=== PATIENT | female | born 1990 | race Caucasian/White ===

== ENCOUNTER 2017-03-31 08:05 | Emergency (ER) | payer SELFPAY ==
[2017-03-31] MEDS ORDERED: HYDROCODON-ACE1 EAC7 PO (14:04)
[2017-04-01 10:44] VITALS: BMI 25.1
[2017-04-01] MEDS ORDERED: HYDROCODONE-APA1 TAB PO (16:40)
== END 2017-03-31 10:05 | disposition home or self-care (01) ==
LOC: D.ER 08:05
DX: S92.352A Displaced fracture of fifth metatarsal bone, left foot, initial encounter for closed fracture (principal); W10.9XXA Fall (on) (from) unspecified stairs and steps, initial encounter; Y93.89 Activity, other specified; Y92.89 Other specified places as the place of occurrence of the external cause

== ENCOUNTER 2017-04-01 08:52 | Day surgery (SDC) | payer SELFPAY ==
[~2017-04-01] VITALS: Ht 170.2 cm; Wt 72.6 kg
--- NOTE | ~2017-04-01 | OP ---
PATIENT NAME: STANFORD JENSEN MEDICAL RECORD: [id number] :90 LOCATION:[facility] ADMISSION DATE: SURGEON: JUAN SOLIZ MD DATE OF OPERATION: 04/01/2017 PREOPERATIVE DIAGNOSIS: Comminuted 5th metatarsal fracture. POSTOPERATIVE DIAGNOSIS: Comminuted 5th metatarsal fracture. PROCEDURE: Open reduction internal fixation of comminuted 5th metatarsal fracture. IMPLANTS USED: Inna VariAx Z-Plate. OPERATIVE SUMMARY IN DETAIL: After obtaining the appropriate preoperative orthopedic surgery consent as well as anesthetic consultation, evaluation and clearance, the patient was brought to the operating room and placed on the operating table in supine position. After general laryngeal mask was administered, tourniquet was placed about the proximal aspect of the left lower extremity. Left lower extremity was then prepped and draped in routine sterile fashion. The leg was elevated and exsanguinated. Tourniquet inflated to 350 mmHg. A linear based incision was made directly over the metatarsal fracture, which was identified. This was reduced to its anatomic position and provisional pinning was put into place and then the ____ Z-Plate was put into place and serial and sequential drill and fill with a small titanium 2.3 system was utilized for fixation. Radiographs were submitted for final radiologist review. On 3 planes, wound was copiously irrigated and closed with 2-0 followed by 4-0 Prolene in running fashion. Sterile dressings were applied. The patient was awakened, taken to recovery room in stable condition. All final needle and sponge counts were correct. TRANSINT:[id number] Voice Confirmation ID: [id number] DOCUMENT ID: [id number] JUAN SOLIZ MD CC: [id number] DICTATION DATE: 04/15/17 0508 ENVIRONMENTAL PROFESSIONAL: 04/15/17 1345 [facility] 04/01/17 [facility] [address] [place] [address]
[~2017-04-01 08:52] MED LIST: HYDROCODON-ACE1 EAC7 PO
[2017-04-01 10:00] LABS: BASOPHILS 0.2 % (0-2); EOSINOPHILS 1.8 % (0-7); HEMATOCRIT 39.8 % (36.0-48.0); HEMOGLOBIN 13.2 g/dL (12-16); IMMATURE GRANULOCYTES 0.2 % (0-5); LYMPHOCYTES 30.1 % (15-50); MCH 30.7 pg (26.0-34.0); MCHC 33.2 g/dL (31.0-37.0); MCV 92.6 fL (80.0-100.0); MEAN PLATELET VOLUME 9.4 fL (7.4-10.4); MONOCYTES 6.5 % (2-11); NEUTROPHILS 61.2 % (40-80); PLATELET COUNT 318 10x3/uL (130-400); RDW 12.1 % (11.5-14.5); WBC 8.4 10x3/uL (4.8-10.8)
[2017-04-01 10:44] VITALS: BP 134/76; Ht 170.2 cm; Wt 72.6 kg
[2017-04-01 10:57] LABS: HCG URINE NEGATIVE (NEGATIVE)
[2017-04-01] MEDS ORDERED: HYDROCODONE-APA1 TAB PO (16:40)
--- NOTE | 2017-04-01 17:52 | NUR ---
1745 REPORT FROM SUE MYERS R.N.
--- NOTE | 2017-04-01 18:46 | NUR ---
1825 RESP NONLABORED.LEFT FOOT LOWER LEG DRESSING C/D/I COLOR PINK PULSE PRESENT. IV DCD CATHETER INTACT. WENT OVER DISCHARGE INSTRUCTIONS SCRIPT GIVEN AND VERBALLY UNDERSTANDS. 183 TO HOME VIA W/C WITH FAMILY. TOLD TO DO INSTRUCTIONS GIVEN BY DR. SOLIZ.
== END 2017-04-01 18:30 | disposition home or self-care (01) ==
LOC: D.OPS 08:52 → D.PAN 11:15 → D.OPS 11:15
PROVIDERS: Anesthesiology; Orthopaedic Surgery
DX: S92.351A Displaced fracture of fifth metatarsal bone, right foot, initial encounter for closed fracture (principal); Z01.812 Encounter for preprocedural laboratory examination

== ENCOUNTER → 2017-06-03 10:29 | Outpatient (CLI) | payer MEDICAID ==
[2017-04-01 10:44] VITALS: BMI 25.1
[~2017-06-03 10:29] MED LIST changes: +HYDROCODONE-APA1 TAB PO
== END | disposition home or self-care (01) ==
LOC: D.MRI 10:29
DX: M25.372 Other instability, left ankle (principal)

== ENCOUNTER 2018-10-22 15:56 | Emergency (ER) | payer SELFPAY | END 2018-10-22 17:25 | disposition home or self-care (01) | LOC: D.ER 15:56 | DX: J40 Bronchitis, not specified as acute or chronic (principal); S46.812A Strain of other muscles, fascia and tendons at shoulder and upper arm level, left arm, initial encounter; X58.XXXA Exposure to other specified factors, initial encounter; Y93.89 Activity, other specified; Y92.019 Unspecified place in single-family (private) house as the place of occurrence of the external cause; R07.9 Chest pain, unspecified; M25.512 Pain in left shoulder; F17.200 Nicotine dependence, unspecified, uncomplicated ==